=== PATIENT | male | born 1990 | race American Indian/Alaskan Native ===

== ENCOUNTER 2017-03-26 03:34 | Emergency (ER) | payer MEDICAID ==
--- NOTE | 2017-03-26 03:52 | C.PDOC ---
History Of Present Illness Patient presents to ED after he hurt his back catching a box inside of a truck while at work, he states as he lifted the box he felt a sharp stabbing pain to the lower back. Patient reports the pain does not radiate; denies incontinence of urine/feces or change in sensation. Time Seen by Provider: 03/26/17 03:52 Chief Complaint (Nursing): Back Pain History Per: Patient History/Exam Limitations: no limitations Onset/Duration Of Symptoms: Hrs Current Symptoms Are (Timing): Still Present Quality Of Discomfort: Sharp (Stabbing) Severity: Moderate Pain Scale Rating Of: 5 Previous Symptoms: None Associated Symptoms: None Exacerbating Factor(s): Turning, Movement, Sitting, Standing Recent travel outside of the [place]: No Additional History Per: Patient Past Medical History Reviewed: Historical Data, Nursing Documentation, Vital Signs Vital Signs: Last Vital Signs Temp 98.5 F 03/26/17 03:38 Pulse 83 03/26/17 05:57 Resp 18 03/26/17 05:57 BP 105/64 03/26/17 05:57 Pulse Ox 98 03/26/17 05:57 - Medical History PMH: No Chronic Diseases Surgical History: No Surg Hx Family History: States: No Known Family Hx - Social History Hx Tobacco Use: Yes Hx Alcohol Use: No Hx Substance Use: No - Immunization History Hx Tetanus Toxoid Vaccination: No Hx Influenza Vaccination: No Hx Pneumococcal Vaccination: No Review Of Systems Constitutional: Negative for: Fever, Chills Genitourinary: Negative for: Dysuria, Incontinence Musculoskeletal: Positive for: Back Pain (Lower back) Skin: Negative for: Rash Neurological: Negative for: Weakness, Numbness Psych: Negative for: Anxiety Physical Exam - Physical Exam Appears: Non-toxic, Other (Alert and awake ) Skin: Warm, Dry Gastrointestinal/Abdominal: Soft, No Tenderness, No Distention Back: Decreased ROM (due to pain), Muscle Spasm, Paraspinal Tenderness (Low thoracic and lumbar region), Straight Leg Raising (pain positive at 30 degrees ) Extremity: No Tenderness, Capillary Refill (<2 seconds) Extremity: Bilateral: Atraumatic, Normal Color And Temperature Pulses: Left Femoral: Normal, Right Femoral: Normal Neurological/Psych: Oriented x3, Normal Motor, Normal Sensation Gait: Unsteady (due to pain) ED Course And Treatment O2 Sat by Pulse Oximetry: 97 (Room air) Pulse Ox Interpretation: Normal Progress Note: Administered Toradol and Decadron Inj. Disposition Counseled Patient/Family Regarding: Studies Performed, Diagnosis - Disposition Disposition Time: 03:52 Condition: FAIR Forms: [facility] ([place]ish) - Clinical Impression Clinical Impression: Low back pain, Low back strain, Thoracic back pain, Thoracic back sprain - Scribe Statement The provider has reviewed the documentation as recorded by the Azucenaibjonas Montes All medical record entries made by the Azucenaibjonas were at my direction and personally dictated by me. I have reviewed the chart and agree that the record accurately reflects my personal performance of the history, physical exam, medical decision making, and the department course for this patient. I have also personally directed, reviewed, and agree with the discharge instructions and disposition. Physician Patient Turnover Patient Signed Over To: Rosuara Contreras Handoff Comments: pending ct and re-eval
[2017-03-26] MEDS ORDERED: Dexamethasone 4 mg/1 ml IVP STA (04:09)
[2017-03-26] MEDS ORDERED: Dexamethasone 4 mg/1 ml ONE (04:23)
[2017-03-26 06:33] VITALS: O2SAT 97
--- NOTE | 2017-03-26 09:03 | CT ---
PROCEDURE: CT Lumbar Spine without contrast HISTORY: pain after lifting COMPARISON: None. TECHNIQUE: Axial computed tomography images were obtained of the lumbar spine without the use of intravenous contrast. Coronal and sagittal reformatted images were created and reviewed. Radiation dose: Total exam DLP = 392.23 mGy-cm. This CT exam was performed using one or more of the following dose reduction techniques: Automated exposure control, adjustment of the mA and/or kV according to patient size, and/or use of iterative reconstruction technique. FINDINGS: VERTEBRAE: Unremarkable. No fracture. Normal alignment. DISCS/SPINAL CANAL/NEURAL FORAMINA: L1-2: Unremarkable. L2-3: Unremarkable. L3-4: Unremarkable. L4-5: Mild diffuse bulge. No spinal or foraminal stenosis. Possible right lateral recess stenosis due to osteophyte arising from facet articulation. L5-S1: Mild diffuse disc bulge. No spinal or foraminal stenosis. PARASPINAL SOFT TISSUES: Unremarkable. OTHER FINDINGS: None. IMPRESSION: No fracture/ dislocation. Mild disc bulge L4-5 and L5-S1. Osteophyte from right facet articulation at L4-5 with possible right L4-5 lateral recess stenosis.
--- NOTE | 2017-03-26 09:04 | CT ---
PROCEDURE: CT Thoracic Spine without contrast HISTORY: pain COMPARISON: None. TECHNIQUE: Axial computed tomography images were obtained of the thoracic spine without intravenous contrast. Coronal and sagittal reformatted images were created and reviewed. Radiation dose: Total exam DLP = 408.77 mGy-cm. This CT exam was performed using one or more of the following dose reduction techniques: Automated exposure control, adjustment of the mA and/or kV according to patient size, and/or use of iterative reconstruction technique. FINDINGS: VERTEBRAE: Unremarkable. No fracture. Normal alignment. DISCS/SPINAL CANAL/NEURAL FORAMINA: Within the limits of the CT technique, no disc herniation seen. No central canal or neural foraminal stenosis.. PARASPINAL SOFT TISSUES: Unremarkable. OTHER FINDINGS: Unremarkable. IMPRESSION: No evidence of fracture or degenerative disc disease. Unremarkable examination.
[2017-03-26 09:26] VITALS: BP 127/80; PULSE 94; RESP 16; TEMP 98.7
== END 2017-03-26 09:51 | disposition home or self-care (01) ==
LOC: C.ER 03:34
DX: S39.012A Strain of muscle, fascia and tendon of lower back, initial encounter (principal); S23.3XXA Sprain of ligaments of thoracic spine, initial encounter; X50.9XXA Other and unspecified overexertion or strenuous movements or postures, initial encounter; Y92.812 Truck as the place of occurrence of the external cause; Y99.0 Civilian activity done for income or pay; Z87.891 Personal history of nicotine dependence
CPT/HCPCS: 72128; 72131; 96374; 96375; 99285; J1100; J1885; J2270

== ENCOUNTER 2017-04-22 18:25 | Emergency (ER) | payer MEDICAID ==
[2017-04-22] MEDS ORDERED: Sodium Chloride 0.9% 1,000 ML IV ONE ×2 (20:41→20:42)
--- NOTE | 2017-04-22 20:43 | C.PDOC ---
History Of Present Illness 26 year old male presents to the ED c/o upper abdominal pain associated with nausea and vomit for the past 3 days. Patient denies diarrhea, fever, chills, back pain, dysuria, hematuria. Time Seen by Provider: 04/22/17 20:42 Chief Complaint (Nursing): Abdominal Pain History Per: Patient History/Exam Limitations: no limitations Onset/Duration Of Symptoms: Days Current Symptoms Are (Timing): Still Present Context: Travel Location Of Pain/Discomfort: Epigastric Radiation Of Pain To:: None Quality Of Discomfort: "Pain" Associated Symptoms: Nausea, Vomiting. denies: Diarrhea Exacerbating Factors: None Alleviating Factors: None Recent travel outside of the [place]: No Additional History Per: Patient Past Medical History Reviewed: Historical Data, Nursing Documentation, Vital Signs Vital Signs: Last Vital Signs Temp 98.3 F 04/23/17 00:26 Pulse 67 04/23/17 00:26 Resp 18 04/23/17 00:26 BP 100/63 04/23/17 00:26 Pulse Ox 100 04/23/17 00:26 - Medical History PMH: No Chronic Diseases Surgical History: No Surg Hx Family History: States: Unknown Family Hx - Social History Hx Tobacco Use: Yes Hx Alcohol Use: No Hx Substance Use: No - Immunization History Hx Tetanus Toxoid Vaccination: No Hx Influenza Vaccination: No Hx Pneumococcal Vaccination: No Review Of Systems Constitutional: Negative for: Fever, Chills Cardiovascular: Negative for: Chest Pain, Palpitations Respiratory: Negative for: Cough, Shortness of Breath Gastrointestinal: Positive for: Nausea, Vomiting, Abdominal Pain. Negative for : Diarrhea Genitourinary: Negative for: Dysuria, Hematuria Musculoskeletal: Negative for: Neck Pain Skin: Negative for: Rash Neurological: Negative for: Weakness, Numbness Physical Exam - Physical Exam Appears: Non-toxic, No Acute Distress Skin: Normal Color, Warm, Dry Head: Atraumatic, Normacephalic Eye(s): bilateral: Normal Inspection Nose: No Discharge, No Deformity Oral Mucosa: Moist Neck: Normal ROM, Supple Chest: Symmetrical Cardiovascular: Rhythm Regular, No Murmur Respiratory: Normal Breath Sounds, No Rales, No Rhonchi, No Wheezing Gastrointestinal/Abdominal: Soft, Tenderness (epigastric), No Guarding, No Rebound Extremity: Normal ROM, No Pedal Edema, No Calf Tenderness, No Deformity, No Swelling Neurological/Psych: Oriented x3, Normal Speech, Normal Cognition Gait: Steady ED Course And Treatment - Laboratory Results Result Diagrams: 04/22/17 21:11 04/22/17 21:11 O2 Sat by Pulse Oximetry: 99 (On RA) Pulse Ox Interpretation: Normal Medical Decision Making Medical Decision Making: Impression : abdominal pain Plan: * Labs * UA * Bentyl 20 mg IM * Carafate 1 gm PO * Zofran 4 mg IVP Disposition Counseled Patient/Family Regarding: Diagnosis - Disposition Referrals: [facility] [Outside] Disposition: HOME/ ROUTINE Disposition Time: 00:14 Condition: STABLE Prescriptions: Dicyclomine [Bentyl] 10 mg PO QID #20 cap Famotidine [Pepcid] 20 mg PO BID #20 tab Instructions: Abdominal Pain (ED), Gastritis (DC) Forms: [facility] ([place]er) - Clinical Impression Clinical Impression: Abdominal pain, Gastritis - Scribe Statement The provider has reviewed the documentation as recorded by the Scribe Rupert Cornelius All medical record entries made by the Scribe were at my direction and personally dictated by me. I have reviewed the chart and agree that the record accurately reflects my personal performance of the history, physical exam, medical decision making, and the department course for this patient. I have also personally directed, reviewed, and agree with the discharge instructions and disposition.
[2017-04-22] MEDS ORDERED: Sodium Chloride 0.9% 1,000 ML ONE ×2 (21:20→22:03)
[2017-04-22 21:23] VITALS: RESP 18
[2017-04-22 21:27] LABS: URINE BACTERIA OCC (<OCC); URINE BILIRUBIN NEGATIVE (NEGATIVE); URINE BLOOD NEGATIVE (NEGATIVE); URINE CLARITY Clear (Clear); URINE COLOR Yellow (YELLOW); URINE GLUCOSE (UA) NORMAL (Normal); URINE LEUKOCYTE ESTERASE 1+ Leu/uL (Negative); URINE NITRATE NEGATIVE (NEGATIVE); URINE PROTEIN NEGATIVE (NEGATIVE); URINE UROBILINOGEN NORMAL mg/dL (0.2-1.0)
[2017-04-22 21:32] LABS: BASO # 0.1 K/uL (0.0-0.2); BASO % 0.7 % (0.0-2.0); EOS # 0.2 K/uL (0.0-0.7); EOS % 2.1 % (0.0-4.0); HEMOGLOBIN 14.8 g/dL (12.0-18.0); LYMPH # 1.8 K/uL (1.0-4.3); LYMPH % 21.8 % (20.0-40.0); MEAN CELL VOLUME 83.4 fL (80.0-94.0); MEAN CORPUSCULAR HEMOGLOBIN 27.7 pg (27.0-31.0); MEAN CORPUSCULAR HGB CONC 33.2 g/dL (33.0-37.0); MEAN PLATELET VOLUME 7.8 fL (7.2-11.7); MONO # 0.6 K/uL (0.0-0.8); MONO % 7.2 % (0.0-10.0); NEUT # 5.6 K/uL (1.8-7.0); NEUT % 68.2 % (50.0-75.0); RBC 5.33 Mil/uL (4.40-5.90); RED CELL DISTRIBUTION WIDTH 14.2 % (11.5-14.5); WHITE BLOOD COUNT 8.2 K/uL (4.8-10.8)
[2017-04-22 21:35] LABS: ALB/GLOB RATIO 1.3 (1.0-2.1); ALBUMIN 4.2 g/dL (3.5-5.0); ALT/SGPT 18 U/L (21-72); AST/SGOT 20 U/L (17-59); BLOOD UREA NITROGEN 13 mg/dL (9-20); CALCIUM 9.4 mg/dl (8.6-10.4); GFR AFRICAN-AMERICAN > 60; GFR NON-AFRICAN AMERICAN > 60; LIPASE 82 U/L (23-300)
[2017-04-23 00:28] VITALS: BP 100/63; PULSE 67; TEMP 98.3
[2017-04-26 16:51] VITALS: O2SAT 99
== END 2017-04-23 00:32 | disposition home or self-care (01) ==
LOC: C.ER 18:25
DX: K29.70 Gastritis, unspecified, without bleeding (principal)
CPT/HCPCS: 80053; 81001; 82948; 83690; 85025; 96361; 96372; 96374; 96375; 99285; J0500; J1885; J2405; J7040